=== PATIENT | female | born 1995 | race African-American/Black ===

== ENCOUNTER 2022-07-18 16:58 | Emergency (ER) | payer BC, SELFPAY ==
[2022-07-18 17:02] VITALS: BP 139/95; PULSE 81; RESP 14; TEMP 36.9; O2SAT 100
[2022-07-18 17:30] LABS: Appearance Urine Clear (Clear); Bilirubin Urine Negative (Negative); Blood Urine Trace-intact (Negative); Color Urine Yellow (Yellow); Glucose Urine UA Negative (Negative); Ketones Urine Negative (Negative); Leukocyte Esterase Ur Trace LEU/UL (Negative); Nitrate Urine Negative (Negative); Protein Urine Negative (Negative); pH Urine 7.5 (5.0-9.0)
[2022-07-18 17:36] LABS: Mucus Urine Rare /lpf; Squamous Epithelial Cell Urine Few /hpf (Few); WBC Urine 0-3 /hpf
[2022-07-18 17:37] LABS: Add Urine Microscopic? YES
[2022-07-18 20:31] VITALS: BP 117/73; PULSE 63; RESP 18; TEMP 37.3; O2SAT 100
[2022-07-18 20:50] LABS: Basophils Absolute Auto 0.1 K/mm3 (0.0-0.1); Basophils Percent Auto 0.6 % (0.2-1.2); Eosinophils Absolute Auto 0.1 K/mm3 (0-0.3); Eosinophils Percent Auto 1.6 % (0-4.4); Hematocrit 39.7 % (37.0-47.0); Hemoglobin 12.5 g/dL (12.0-15.0); Immature Granulocyte Absolute 0.03 K/mm3 (0.00-0.031); Immature Granulocyte Percent A 0.3 % (0-0.5); Lymphocytes Absolute Auto 2.88 K/mm3 (0.9-3.2); Lymphocytes Percent Auto 33.3 % (18.3-44.2); Mean Corpuscular HGB Conc 31.5 g/dl (32-36); Mean Corpuscular Hemoglobin 25.3 pg (26-34); Mean Corpuscular Volume 80.2 fl (80-100); Mean Platelet Volume 8.8 fl (7.4-10.4); Monocytes Absolute Auto 0.6 K/mm3 (0.1-0.6); Monocytes Percent Auto 6.5 % (2.6-8.5); Neutrophils Percent Auto 57.7 % (45.5-73.1); Platelet Count Result 277 k/mm3 (150-375); Red Blood Count 4.95 M/mm3 (4.2-5.4); Red Cell Distribution Width 13.2 % (11.5-14.5); White Blood Count 8.7 K/mm3 (4.5-10.0)
--- NOTE | 2022-07-18 22:55 | ED.FEMALEGU ---
HPI - Female Genitourinary General Chief complaint: Vaginal Bleeding <Ashley Lester PA-C - Last Filed: 07/18/22 23:09> Stated complaint: spotting, body aches <Ashley Lester PA-C - Last Filed: 07/18/22 23:09> Time Seen by Provider: 07/18/22 22:26 <Ashley Lester PA-C - Last Filed: 07/18/22 23:09> Source: patient <AMEE Issa Last Filed: 07/18/22 23:09> Mode of arrival: ambulatory <Ashley Lester PA-C - Last Filed: 07/18/22 23:09> Limitations: no limitations <Ashley Lester PA-C - Last Filed: 07/18/22 23:09> History of Present Illness HPI Narrative: This is a 27-year-old female that presents to the emergency department for abnormal uterine bleeding. Reports she has been having vaginal spotting over the last couple of weeks. She usually has regular monthly periods. She is not on any control. Does not denies any concern for STDs. <Ashley Lester PA-C - Last Filed: 07/18/22 23:09> Related Data Allergies/Adverse reactions: Allergies Allergy/AdvReac Type Severity Reaction Status Date / Time No Known Allergies Allergy Verified 07/18/22 16:59 <Ashley Lester PA-C - Last Filed: 07/18/22 23:09> Review of Systems Review of Systems: CONSTITUTIONAL: Denies fever GASTROINTESTINAL: Denies abdominal pain, vomiting GENITOURINARY: Denies dysuria <Ashley Lester PA-C - Last Filed: 07/18/22 23:09> All systems reviewed & are unremarkable except as noted in HPI and below <Ashley Lester PA-C - Last Filed: 07/18/22 23:09> [facility] Past Medical History Medical History: Medical History (Updated 07/19/22 @ 00:01 by Melanie Humphrey) No active medical problems <AMEE Issa Last Filed: 07/18/22 23:09> Social History Social History: Social History (Updated 07/18/22 @ 22:56 by Ashley Lester PA-C) Smoking status: Never smoker <Ashley Lester PA-C - Last Filed: 07/18/22 23:09> Exam Narrative: GENERAL: Well-appearing, well-nourished, and in no acute distress. HEAD: Normocephalic, atraumatic. EYES: EOMI. CHEST: No respiratory distress. HEART: Regular rate EXTREMITIES: Normal range of motion. No edema. SKIN: Warm, dry, no rash. NEURO: No focal deficits. Alert and oriented x3. PSYCH: Normal mood and affect PELVIC: Normal external genitalia. Normal appearing cervix. No abnormal discharge or lesions noted. No bleeding noted <Ashley Lester PA-C - Last Filed: 07/18/22 23:09> Course BONE TENDER/PA Physician Supervision I discussed this patient with ROSANNE Lester. I agree with the assessment and plan as documented <Jp Fitzpatrick MD - Last Filed: 07/19/22 13:46> Vital Signs Vital signs: Vital Signs Temperature 98.4 F 07/18/22 17:02 Pulse Rate 81 07/18/22 17:02 Respiratory Rate 14 07/18/22 17:02 Blood Pressure 139/95 H 07/18/22 17:02 Pulse Oximetry 100 07/18/22 17:02 Oxygen Delivery Room Air 07/18/22 17:02 Temperature 99.2 F 07/18/22 20:31 Pulse Rate 69 07/18/22 23:13 Respiratory Rate 16 07/18/22 23:13 Blood Pressure 115/83 07/18/22 23:13 Pulse Oximetry 100 07/18/22 23:13 Oxygen Delivery Room Air 07/18/22 17:02 <Ashley Lester PA-C - Last Filed: 07/18/22 23:09> Vital Signs Temperature 98.4 F 07/18/22 17:02 Pulse Rate 81 07/18/22 17:02 Respiratory Rate 14 07/18/22 17:02 Blood Pressure 139/95 H 07/18/22 17:02 Pulse Oximetry 100 07/18/22 17:02 Oxygen Delivery Room Air 07/18/22 17:02 Temperature 99.2 F 07/18/22 20:31 Pulse Rate 69 07/18/22 23:13 Respiratory Rate 16 07/18/22 23:13 Blood Pressure 115/83 07/18/22 23:13 Pulse Oximetry 100 07/18/22 23:13 Oxygen Delivery Room Air 07/18/22 17:02 <Jp Fitzpatrick MD - Last Filed: 07/19/22 13:46> MDM - Female Genitourinary MDM Narrative Medical decision making narrative: Patient presents emergency department for abnormal uterine bleeding. Her vitals are
[2022-07-18 23:13] VITALS: BP 115/83; PULSE 69; RESP 16; O2SAT 100
== END 2022-07-18 23:16 | disposition home or self-care (01) ==
PROVIDERS: Emergency Medicine; Physician Assistant; Emergency Provider Preventive Medicine Aerospace Medicine
DX: N93.8 Other specified abnormal uterine and vaginal bleeding (principal)
CPT/HCPCS: 36415; 81001; 81025; 85025; 99284

== ENCOUNTER 2022-08-06 14:03 | Outpatient (CLI) | payer BC, SELFPAY ==
--- NOTE | ~2022-08-06 | US_ITS ---
EXAMINATION: US transvaginal DATE: 08/06/2022 14:44 INDICATION: Spotting between periods. Comparison:No prior studies for comparison. TECHNIQUE: Multiple endovaginal sonographic images of the pelvis performed. FINDINGS: The uterus measures 7.4 x 4.3 x 4.8 cm. The endometrial complex measures 3.4 mm. The right ovary measures 2.8 x 4 x 2.8 cm and the left ovary measures 2.6 x 2 x 2.6 cm. There are sm all follicles in each ovary. Normal doppler signal in both ovaries. There is no free fluid in the pelvis. There are no abnormal masses seen on either side. IMPRESSION: 1. Unremarkable pelvic ultrasound. Reviewed, dictated and finalized at location B. MANAGER
== END 2022-08-06 14:04 ==
PROVIDERS: PCP Nurse Practitioner; Visit Provider Nurse Practitioner
DX: N93.8 Other specified abnormal uterine and vaginal bleeding (principal)
CPT/HCPCS: 76830

== ENCOUNTER 2023-10-20 18:14 | Emergency (ER) | payer BC, SELFPAY ==
--- NOTE | ~2023-10-20 | CT_ITS ---
EXAMINATION: CTA chest PE protocol DATE: 10/20/2023 22:21 INDICATION: chest pain, elevated d dimer TECHNIQUE: Computed tomography angiography (CTA) of the chest was performed with 100 mL Omnipaque-350 intravenous contrast timed to evaluate the pulmonary arteries. Coronal maximum intensity projection 3D-reconstructions were created by the technologist. The dose-length product (DLP) was 431.32 mGy-cm. Automated exposure control and iterative reconstruction technique were employed. COMPARISON: X-ray chest, same date. FINDINGS: Lung parenchyma and airways: Segmental right upper lobe consolidation. Clear airways. Pleura: Unremarkable. Thoracic inlet, axillae and chest wall: Unremarkable. Thoracic aorta: Normal. Mediastinum: Normal. Heart and pericardium: Normal. Coronary artery calcifications: Absent. Upper abdomen: No significant finding. Bones: No acute osseous finding. Pulmonary arteries: Study quality: Adequate. No pulmonary emboli detected. IMPRESSION: No CT evidence of acute pulmonary embolus. Right upper lobe pneumonia. Reviewed, dictated and finalized at location K. UATION MANAGER
--- NOTE | ~2023-10-20 | XR_ITS ---
EXAMINATION: XR chest 2V Exam Date/Time: 10/20/2023 20:50 MACHINERY DISMANTLER HISTORY: R anterior chest pain and upper R back pain Comparison: None. RESULT: Lines, tubes, and devices: None. Lungs and pleura: Segmental peripheral right upper lobe consolidation. Cardiomediastinal silhouette: Stable. Other: No acute osseous or upper abdominal finding. IMPRESSION: Right upper lobe pneumonia. Reviewed, dictated and finalized at location K. INERY DISMANTLER IMPRESSION: Right upper lobe pneumonia.
[2023-10-20 18:42] VITALS: BP 141/83; PULSE 109; RESP 17; TEMP 37.2; O2SAT 99
--- NOTE | 2023-10-20 20:39 | ECG_ITS ---
Measurements Intervals [place] Rate: 85 P: 46 NC: 164 QRS: 40 QRSD: 79 T: 22 QT: 344 QTc: 410 Interpretive Statements SINUS RHYTHM NONSPECIFIC T WAVE ABNORMALITY NO PREVIOUS ECG AVAILABLE FOR COMPARISON Electronically Signed On 10-21-2023 15:07:45 [employer] OFFICE MANAGER by Puneet Wetzel M.D.
--- NOTE | 2023-10-20 20:40 | ED.BACK ---
HPI - Back Pain/Injury General Chief Complaint: Back Pain/Injury Stated Complaint: back pain Time Seen by Provider: 10/20/23 20:23 History of Present Illness HPI Narrative: 28-year-old female reports for evaluation for right upper back pain x1 month, worsening over the past week. She states that in the past few days she has developed right anterior chest wall pain that radiates down into her right breast. She states that her pain is worse with movement when she lays down. It is better when she sits up and moves slowly. She denies shortness of breath or pleuritic pain, loss of consciousness, fever, lower extremity edema or pain, history of VTE, injury or trauma. She does report a mild productive cough. Denies concern for . Related Data Allergies Allergy/AdvReac Type Severity Reaction Status Date / Time No Known Allergies Allergy Verified 10/20/23 19:12 Review of Systems Review of Systems: CONSTITUTIONAL: Denies fever, chills, or sweats. EYES: Denies visual changes, redness, or discharge. ENT: Denies rhinorrhea, congestion, sore throat, or otalgia. CARDIOVASCULAR: See HPI RESPIRATORY: Denies cough or dyspnea. GASTROINTESTINAL: Denies abdominal pain, nausea, vomiting, or diarrhea. GENITOURINARY: Denies dysuria or hematuria. SKIN: Denies rash or itching. MUSCULOSKELETAL: See HPI NEUROLOGIC: Denies headache, numbness, or weakness. PSYCHIATRIC: Denies anxiety or depression. PMFSH Past Medical History Medical History No active medical problems Social History Social History Smoking status: Never smoker Exam Narrative: GENERAL: Well-appearing, well-nourished, and in no acute distress. HEAD: Normocephalic, atraumatic. EYES: PERRLA and EOMI. ENT: Nares clear, no rhinorrhea or epistaxis. Mucous membranes moist. NECK: Supple. CHEST: Clear to auscultation. No respiratory distress. Tenderness to the right anterior chest wall along the sternal border. No step-offs, crepitus or deformities. No overlying rash. No tenderness to her right breast. Nipple everted, no discharge. No areas of fluctuation or induration. BACK: No midline thoracolumbar spinous tenderness, step-offs or deformities. Tenderness to the right paraspinous muscles and right posterior ribs without overlying skin changes. HEART: Regular rate and rhythm. No murmur heard. Normal peripheral pulses. ABDOMEN: Soft, nontender, nondistended, normal active bowel sounds. EXTREMITIES: Normal range of motion. No edema. Negative Homans bilaterally SKIN: Warm, dry, no rash. NEURO: No focal deficits. Alert and oriented x3 Course Vital Signs Vital signs: Vital Signs Temperature 99 F 10/20/23 18:42 Pulse Rate 109 H 10/20/23 18:42 Respiratory Rate 17 10/20/23 18:42 Blood Pressure 141/83 H 10/20/23 18:42 Pulse Oximetry 99 10/20/23 18:42 Oxygen Delivery Room Air 10/20/23 18:42 Temperature 99 F 10/20/23 18:42 Pulse Rate 109 H 10/20/23 18:42 Respiratory Rate 17 10/20/23 18:42 Blood Pressure 141/83 H 10/20/23 18:42 Pulse Oximetry 99 10/20/23 18:42 Oxygen Delivery Room Air 10/20/23 18:42 MDM - Back Pain/Injury MDM Narrative Medical decision making narrative: 28-year-old female reports for evaluation for 1 month of right upper back pain that is worsening over the past few days and is now associated with anterior chest pain. See HPI for further history. Vitals significant for mild tachycardia 109, otherwise unremarkable. Patient is well-appearing on exam. Exam is significant for the above. CBC with mild leukocytosis of 12.5. CMP is largely unremarkable. UA with hematuria 2+ ketones, no UTI. negative. COVID, flu RSV are negative. Troponin less than 0.012. EKG shows sinus rhythm, no ischemic changes. D-dimer Elevated to 1.12, therefore CTA chest PE obtained which shows no evidence
[2023-10-20] MEDS: CYCLOBENZAPRINE HCL 10 MG TABLET PO (20:51)
[2023-10-20] MEDS: KETOROLAC 15 MG/ML VIAL (*BKC) IV PUSH (20:51)
[2023-10-20 21:05] LABS: Basophils Absolute Auto 0.1 K/mm3 (0.0-0.1); Basophils Percent Auto 0.4 % (0.2-1.2); Eosinophils Percent Auto 0.3 % (0-4.4); Hematocrit 36.6 % (37.0-47.0); Hemoglobin 11.3 g/dL (12.0-15.0); Immature Granulocyte Absolute 0.07 K/mm3 (0.00-0.031); Immature Granulocyte Percent A 0.6 % (0-0.5); Lymphocytes Absolute Auto 2.24 K/mm3 (0.9-3.2); Lymphocytes Percent Auto 17.9 % (18.3-44.2); Mean Corpuscular HGB Conc 30.9 g/dl (32-36); Mean Corpuscular Hemoglobin 24.7 pg (26-34); Mean Corpuscular Volume 80.1 fl (80-100); Monocytes Absolute Auto 1.6 K/mm3 (0.1-0.6); Monocytes Percent Auto 12.5 % (2.6-8.5); Neutrophils Absolute Auto 8.5 K/mm3 (1.3-6.7); Neutrophils Percent Auto 68.3 % (45.5-73.1); Platelet Count Result 301 k/mm3 (150-375); Red Blood Count 4.57 M/mm3 (4.2-5.4); Red Cell Distribution Width 13.5 % (11.5-14.5); White Blood Count 12.5 K/mm3 (4.5-10.0)
[2023-10-20 21:10] LABS: Appearance Urine Cloudy (Clear); Bacteria Urine None Seen /hpf; Bilirubin Urine Negative (Negative); Blood Urine 2+ (Negative); Color Urine Dark Yellow (Yellow); Glucose Urine UA Negative (Negative); Ketones Urine 2+ mg/dL (Negative); Leukocyte Esterase Ur Negative LEU/UL (Negative); Nitrate Urine Negative (Negative); Non Pathogenic Casts 0-2; Protein Urine 1+ mg/dL (Negative); Specific Grav Ur 1.035 (1.001-1.035); Squamous Epithelial Cell Urine Occasional /hpf (Few); WBC Urine 0-5 /hpf; pH Urine 6.5 (5.0-9.0)
[2023-10-20 21:11] LABS: Add Urine Microscopic? YES
[2023-10-20 21:15] LABS: INR 1.2; Prothrombin Time 15.6 Seconds (11.1-14.7)
[2023-10-20 21:16] LABS: Partial Thromboplastin Time 37.5 SECONDS (22.3-36.8)
[2023-10-20 21:19] LABS: Alanine Aminotransferase 21 U/L (6-35); Albumin Level 4.1 g/dL (3.5-5.1); Alkaline Phosphatase 80 U/L (38-126); Anion Gap 5 mmol/L (8-16); Aspartate Amino Transferase 25 U/L (14-36); Bilirubin,Total 0.8 mg/dL (0.2-1.3); Blood Urea Nitrogen 12 mg/dL (7-17); Carbon Dioxide 26 mmol/L (22-30); Chloride 104 mmol/L (98-107); D Dimer 1.12 ug/mL (<0.48); Estimated CRCL calculation 95 ml/min; Estimated Glomerular Filt Rate > 60; Glucose 99 mg/dL (65-110); Potassium 3.7 mmol/L (3.4-5.0); Sodium 135 mmol/L (137-145)
[2023-10-20 21:31] LABS: Troponin I < 0.012 ng/mL (0.000-0.034)
[2023-10-20 21:43] LABS: Influenza A QL RT-PCR Negative (Negative); Influenza B QL RT-PCR Negative (Negative); RSV RNA, RT-PCR Negative (Negative); SARS-CoV-2 RNA PCR Negative (Negative)
[2023-10-20] MEDS: AMOXICILLIN/CLAVULANATE K 875-125 MG TAB 1 TABLET PO (22:50)
[2023-10-20] MEDS: AZITHROMYCIN 250 MG TABLET 500 MG PO (22:50)
[2023-10-20 22:54] VITALS: BP 109/74; PULSE 79; RESP 20; TEMP 36.9; O2SAT 99
== END 2023-10-20 22:56 | disposition home or self-care (01) ==
PROVIDERS: Emergency Provider Physician Assistant; PCP Nurse Practitioner
DX: J18.9 Pneumonia, unspecified organism (principal); R07.89 Other chest pain; Z20.822 Contact with and (suspected) exposure to COVID-19
CPT/HCPCS: 36415; 71046; 71275; 80053; 81001; 81025; 84484; 85025; 85380; 85610; 85730; 87637; 93005; 96374; 99284; A9270; J1885; Q9967